=== PATIENT | male | born 1995 | race Caucasian/White ===

== ENCOUNTER → 2018-03-15 | Outpatient (CLI) | payer BC, OTHER | LOC: M RAD 10:58 | DX: N50.819 Testicular pain, unspecified (principal); N50.89 Other specified disorders of the male genital organs | CPT/HCPCS: 76870 ==

== ENCOUNTER → 2018-04-02 | Outpatient (CLI) | payer BC, OTHER ==
[2018-04-02 19:46] LABS: LDH LACTATE DEHYDROGENASE 477 U/L (87-241)
[2018-04-02 19:56] LABS: ALPHA FETOPROTEIN TUMOR QUANT 1.4 NG/ML (<8.1)
[2018-04-04 08:06] LABS: HCG SERUM TUMOR MARKER QUANT < 1 mIU/mL (0-3)
== END ==
LOC: M SMT 15:00
DX: N50.9 Disorder of male genital organs, unspecified (principal)
CPT/HCPCS: 83615

== ENCOUNTER → 2018-04-09 | Outpatient (CLI) | payer BC, OTHER ==
[~2018-04-09] MED LIST: ISOVUE-370 76% 100ML VIAL (Q9967) As Ordered
== END ==
LOC: M RAD 14:00
DX: N50.9 Disorder of male genital organs, unspecified (principal); R16.1 Splenomegaly, not elsewhere classified
CPT/HCPCS: Q9967

== ENCOUNTER → 2018-04-12 | Outpatient (CLI) | payer BC, OTHER ==
[2018-04-12 18:13] LABS: HEMOGLOBIN 14.9 g/dl (13.5-17.5); MEAN CORPUSCULAR HEMOGLOBIN 28.3 pg (27.0-33.0); MEAN CORPUSCULAR HGB CONC 32.4 g/dl (32.0-36.5); MEAN CORPUSCULAR VOLUME 87.5 fl (80.0-96.0); PLATELET COUNT, AUTOMATED 222 10^3/uL (150-450); RED BLOOD COUNT 5.26 10^6/uL (4.30-6.10); RED CELL DISTRIBUTION WIDTH 12.2 % (11.5-14.5); WHITE BLOOD COUNT 5.9 10^3/uL (4.0-10.0)
[2018-04-12 18:23] LABS: INR 1.02; PROTHROMBIN TIME 13.5 SECONDS (12.1-14.4)
[2018-04-12 18:24] LABS: PARTIAL THROMBOPLASTIN TIME 32.5 SECONDS (25.4-37.6)
[2018-04-12 18:27] LABS: ANION GAP 6 MEQ/L (8-16); BLOOD UREA NITROGEN 12 MG/DL (7-18); CALCIUM LEVEL 9.3 MG/DL (8.5-10.1); CARBON DIOXIDE LEVEL 30 MEQ/L (21-32); CHLORIDE LEVEL 106 MEQ/L (98-107); CREATININE FOR GFR 1.01 MG/DL (0.70-1.30); GLOMERULAR FILTRATION RATE > 60.0 (>60); GLUCOSE, FASTING 73 MG/DL (70-100); POTASSIUM SERUM 4.5 MEQ/L (3.5-5.1); SODIUM LEVEL 142 MEQ/L (136-145)
== END ==
LOC: M SMT 14:55
DX: Z01.812 Encounter for preprocedural laboratory examination (principal); N50.9 Disorder of male genital organs, unspecified
CPT/HCPCS: 80048